=== PATIENT | male | born 1945 | race Caucasian/White ===

== ENCOUNTER 2021-11-30 14:48 | Inpatient (IN) | payer OTHER ==
[~2021-11-30] VITALS: Ht 175.3 cm; Wt 77.1 kg
--- NOTE | 2021-11-30 14:50 | NUR ---
IV LINE ESTABLISHED BLOOD DRAWN AND SENT TO LAB.
[2021-11-30] MEDS ORDERED: SUCCINYLCHOLINE CHLORIDE 20 MG/ML VIAL IV ONE ×2 (14:51→17:00)
[2021-11-30] MEDS ORDERED: ETOMIDATE 2 MG/ML VIAL IV ONE ×2 (14:51→17:00)
--- NOTE | 2021-11-30 14:52 | NUR ---
RT AT BEDSIDE FOR BIPAP SET UP.
--- NOTE | 2021-11-30 14:54 | NUR ---
SEEN AND EXAMINED BY .
[2021-11-30] MEDS ORDERED: methylPREDNISolone SOD SUCC 125 MG/2ML VIAL IV ONE (15:00)
[2021-11-30] MEDS ORDERED: ALBUTEROL FS 2.5 MG/3 ML VIAL.NEB NEB ONE (15:00)
[2021-11-30] MEDS ORDERED: IPRATROPIUM NEB FS 0.5 MG/2.5 ML AMPUL.NEB NEB ONE (15:00)
[2021-11-30] MEDS ORDERED: methylPREDNISolone SOD SUCC 125 MG/2ML VIAL ONE (15:05)
[2021-11-30] MEDS ORDERED: IPRATROPIUM NEB FS 0.5 MG/2.5 ML AMPUL.NEB ONE (15:25)
[2021-11-30] MEDS ORDERED: ALBUTEROL FS 2.5 MG/3 ML VIAL.NEB ONE (15:25)
--- NOTE | 2021-11-30 15:25 | NUR ---
COVID SPECIMEN OBTAINED AND SENT TO LAB.
[2021-11-30 15:29] LABS: BASOPHILS % (AUTO) 0.5 % (0.0-2.0); EOSINOPHILS % (AUTO) 0.2 % (0.0-6.0); HEMATOCRIT 30 % (39-51); HEMOGLOBIN 9.5 g/dL (13.5-17.5); LYMPHOCYTES % (AUTO) 81.1 % (20.0-44.0); MEAN CORPUSCULAR HGB CONC 31 g/dl (31.0-36.0); MEAN CORPUSCULAR VOLUME 109 fL (80-96); MONOCYTES # (AUTO) 0.3 K/uL (0.1-1.30); MONOCYTES % (AUTO) 5.8 % (2.0-12.0); NEUTROPHILS # (AUTO) 0.6 K/uL (1.8-8.9); NEUTROPHILS % (AUTO) 12.4 % (43.0-81.0); PLATELET COUNT (AUTO) 115 K/uL (150-450); RED BLOOD CELL COUNT(AUTO) 2.79 MIL/uL (4.5-6.0); WHITE BLOOD COUNT (AUTO) 4.9 K/uL (4.3-11.0)
--- NOTE | 2021-11-30 15:41 | NUR ---
CALLED [facility] AND OPENED UP A CASE FOR THE PT. WILL CALL BACK WHEN PT IS READY TO BE ADMITTED
[2021-11-30 15:47] LABS: ALANINE AMINOTRANSFERASE 13 U/L (12-78); ALBUMIN 2.1 g/dL (3.4-5.0); ALKALINE PHOSPHATASE 108 U/L (46-116); ASPARTATE AMINOTRANSFERASE 30 U/L (15-37); BILIRUBIN,DIRECT 0.3 mg/dL (0.0-0.2); BILIRUBIN,TOTAL 0.7 mg/dL (0.2-1.0); CALCIUM, SERUM 8.2 mg/dL (8.5-10.1); CARBON DIOXIDE 17 mmol/L (21-32); CHLORIDE 100 mmol/L (98-107); CREATININE 1.8 mg/dL (0.6-1.3); GLUCOSE 292 mg/dL (74-106); POTASSIUM 4.1 mmol/L (3.5-5.1); SODIUM SERUM 129 mmol/L (136-145); TOTAL PROTEIN, SERUM 9.9 g/dL (6.4-8.2); UREA NITROGEN, BLOOD 23 mg/dL (7-18)
[2021-11-30] MEDS ORDERED: CEFTRIAXONE 1GM BAG (ER ONLY) 50 ML IV ONE ×2 (16:00→16:02)
[2021-11-30] MEDS ORDERED: IV NS 0.9% 1,000 ML BAG IV ONE (16:00)
[2021-11-30] MEDS ORDERED: AZITHROMYCIN 500 MG in IV D5W 250 ML IV ONE (16:00)
--- NOTE | 2021-11-30 16:35 | NUR ---
COVID PCR OBTAINED AND SENT TO LAB
--- NOTE | 2021-11-30 16:42 | NUR ---
PT O2 SATURATION AT 87% ON BIPAP. RT AT BEDSIDE. AWARE.
[2021-11-30 16:55] LABS: BAND % (MANUAL) 2 % (0.0-5.0); NEUTROPHILS % (MANUAL) 10 (42-76)
--- NOTE | 2021-11-30 16:55 | NUR ---
RT AND AT BEDSIDE FOR POSSIBLE INTUBATION.
[2021-11-30 16:56] LABS: BASOPHILS % (MANUAL) 0 % (0.0-2.0); EOSINOPHILS % (MANUAL) 0 % (0-4); LYMPHOCYTES % (MANUAL) 71 % (16-48); MONOCYTES % (MANUAL) 13 % (0-11.0)
--- NOTE | 2021-11-30 16:59 | NUR ---
ETOMIDATE 20MG AND SUCC 120MG IVP GIVEN.
--- NOTE | 2021-11-30 17:00 | NUR ---
INTUBATION DONE BY . ET SIZE 7.5 23MM AT THE LIP. POSTIVE COLOR CHANGE AND BILATERAL EQUAL CHEST RISE.
--- NOTE | 2021-11-30 17:04 | NUR ---
HUMAN RESOURCES EXECUTIVE AT BEDSIDE FOR POST INTUBATION XRAY.
[2021-11-30] MEDS ORDERED: PROPOFOL 100 ML ONE (17:05)
--- NOTE | 2021-11-30 17:44 | NUR ---
PT BP 68/41 AWARE.
--- NOTE | 2021-11-30 17:44 | NUR ---
CALLED PHARMACY FOR LEVOPHED.
[2021-11-30] MEDS ORDERED: NOREPINEPHRINE 8 MG in IV NS 0.9% 250 ML IV ONE (18:00)
[2021-11-30] MEDS ORDERED: NOREPINEPHRINE 8 MG in IV NS 0.9% 242 ML IV PRN ×2 (18:30→20:00)
[2021-11-30] MEDS ORDERED: ACETAMINOPHEN 325 MG TABLET PO PRN (18:30)
[2021-11-30] MEDS ORDERED: MAG HYDROX/AL HYDROX/SIMETH 30 ML UDC PO PRN (18:30)
[2021-11-30] MEDS ORDERED: ONDANSETRON HCL/PF 4 MG/2 ML VIAL IVP PRN (18:30)
[2021-11-30] MEDS ORDERED: MAGNESIUM HYDROXIDE 30 ML UDC PO PRN (18:30)
--- NOTE | 2021-11-30 18:42 | NUR ---
RT NOTE PT RECEIVED IN ED FOR SOB. PLACED ON BIPAP PER MD ORDER. Addendum: 11/30/21 at 1845 by HAO ASTORGA RT Amended: Links added.
--- NOTE | 2021-11-30 18:43 | NUR ---
RT NOTE PT INTUBATED FOR RESPIRATORY DISTRESS AND LOW SAT. 7.5 ETT 23CM @ LIP. POSITIVE COLOR CHANGE DETECTED ON CO2 DETECTOR AND BILATERAL BREATH SOUNDS HEARD. Addendum: 11/30/21 at 1845 by HAO ASTORGA RT Amended: Links added.
--- NOTE | 2021-11-30 19:15 | NUR ---
REPORT GIVEN TO MELANIE CHAUDHARY FOR LEONARD. WITH ONGOING LEVOPHED INFUSING WELL.
--- NOTE | 2021-11-30 19:35 | NUR ---
GENOMICS SCIENTIST RCD PT FROM ER W/DX SEPSIS, RESP FAIL. PT IS COLD TO TOUCH UNABLE TO READ TEMP. PUPILS FIXED AT 1. NO RESPONSE TO PAINFUL STIMULI. PT INTUBATED UNABLE TO READ SATURATION. PT NOTED WITH MOTTLING OF THE SKIN. LEVOPHED AT 0.8 MCG/KG/MIN.
[2021-11-30] MEDS ORDERED: NOREPINEPHRINE 8MG/250ML RTU 0 ML IV ONE (19:53)
[2021-11-30 19:54] VITALS: BP 135/62
[2021-11-30 20:00] VITALS: BP 132/48
[2021-11-30] MEDS ORDERED: Z GUARD REMEDY 4 OZ OINT TP PRN (20:00)
[2021-11-30] MEDS ORDERED: ENOXAPARIN SODIUM 40 MG/0.4 ML DISP.SYRIN SQ SCH (20:00)
--- NOTE | 2021-11-30 20:00 | NUR ---
PARLIAMENTARY COUNSEL S/W FANI GODINEZ WHO IS DECISION MAKER FOR PT UPDATED ON PT CONDITION; AND AGREED TO DNR STATUS. OBTAINED ORDER FROM A MAGDALENO FOR DNR.
--- NOTE | 2021-11-30 20:13 | NUR ---
RADIOLOGY SERVICES MANAGER PT UNABLE TO COMPLETE ADMISSION ASSESSMENT
--- NOTE | 2021-11-30 20:17 | NUR ---
CATEGORY DEVELOPMENT MANAGER RELEASED BY TOD REID
--- NOTE | 2021-11-30 20:30 | NUR ---
[employer] CONTROLLER BODY RELEASED BY [employer] CASE NUMBER [id number]
[2021-11-30] MEDS ORDERED: VANCOMYCIN 1 GM in IV D5W 250ml IV SCH (21:00)
--- NOTE | 2021-11-30 21:16 | NUR ---
GENERAL AGENT PTS NEX OF KIN FANI GODINEZ AT BEDSIDE; HE WILL MAKE MORTUARY ARRANGEMENTS. BELONGINGS GIVEN TO HIM.
[2021-12-01] MEDS ORDERED: ZOSYN IVPB 3.375 G in IV D5W 50ml IV SCH
[2021-12-01] MEDS ORDERED: methylPREDNISolone SOD SUCC 125 MG/2ML VIAL IV SCH
[2021-12-01 11:10] LABS: ABG BASE EXCESS -15.6 mmol/L; ABG PCO2 33.4 mmHg (35.0-45.0); ABG PH 7.166 (7.350-7.450); ABG PO2 77.8 mmHg (75.0-100.0); COHb 0.1 % (0.5-1.5); MetHb 0.4 % (0.0-1.5); O2Hb 90.2 % (94.0-97.0); SITE, ABG Right Radial; VENT MODE, BG non rebreather
== END 2021-11-30 22:05 | DRG 871 ==
LOC: ER 14:50 → ICU 19:47
PROVIDERS: ADMIT Internal Medicine; ATTEND Internal Medicine
DX: A41.9 Sepsis, unspecified organism (principal); G93.41 Metabolic encephalopathy; J15.6 Pneumonia due to other Gram-negative bacteria; J96.01 Acute respiratory failure with hypoxia; N17.0 Acute kidney failure with tubular necrosis; J44.0 Chronic obstructive pulmonary disease with (acute) lower respiratory infection; J44.1 Chronic obstructive pulmonary disease with (acute) exacerbation; I48.91 Unspecified atrial fibrillation; Z66 Do not resuscitate; Z20.822 Contact with and (suspected) exposure to COVID-19
CPT/HCPCS: 36415; 36600; 71045-TC; 80048-TC; 80076-TC; 82533; 82803-TC; 83605-TC; 83880; 84484-TC; 85025-TC; 85730-TC; 87040-TC; 87081-TC; 94799-TC; C9803; G0378; J0330; J0456; J0696; J2543; J2930; J3370; J3490; J7030; J7050; J7060; U0003